=== PATIENT | female | born 1955 | race Caucasian/White ===

== ENCOUNTER 2020-06-05 18:40 | Observation (INO) | payer MEDICARE, MEDICAID ==
[~2020-06-05] VITALS: Ht 157.5 cm; Wt 60.0 kg
[~2020-06-05 18:40] MED LIST: BENA40TA8 PO; CALC-467 PO; CYCL-1 PO; IBUP-1984 PO; LANS15CA10 PO; METO-539 PO; ORPH100T2 PO; TRAZ-251 PO; TRIA1CAP6 PO
[2020-06-05 19:04] LABS: BASOPHILS % (AUTO) 0.4 % (0-1); EOSINOPHILS # (AUTO) 0.1 X10'3 (0-0.9); EOSINOPHILS % (AUTO) 0.9 % (0-6); HEMATOCRIT 41.1 % (35.0-45.0); HEMOGLOBIN 13.8 g/dl (12.0-16.0); LYMPHOCYTES % (AUTO) 27.3 % (21-51); MEAN CORPUSCULAR HEMOGLOBIN 30.7 PG (27.0-31.0); MEAN CORPUSCULAR HGB CONC 33.5 g/dL (33.0-36.5); MEAN CORPUSCULAR VOLUME 91.6 FL (78-98); MEAN PLATELET VOLUME 7.2 FL (7.4-10.4); MONOCYTES # (AUTO) 0.5 X10'3 (0-0.9); MONOCYTES % (AUTO) 6.9 % (2-12); NEUTROPHILS # (AUTO) 4.6 X10'3 (1.8-7.7); NEUTROPHILS % (AUTO) 64.5 % (42-75); PLATELET COUNT 320 X10'3 (140-440); RED BLOOD COUNT 4.48 X10'6 (4.20-5.60); RED CELL DISTRIBUTION WIDTH 13.8 % (11.5-14.5); WHITE BLOOD COUNT 7.2 X10'3 (4.5-11.0)
[2020-06-05 19:20] LABS: ALANINE AMINOTRANSFERASE 26 U/L (12-78); ALBUMIN 4.2 G/DL (3.4-5.0); ALBUMIN/GLOBULIN RATIO 1.2 (1.1-1.5); ALKALINE PHOSPHATASE 56 IU/L (46-116); ANION GAP 5 (8-16); ASPARTATE AMINO TRANSFERASE 17 U/L (10-37); BILIRUBIN,TOTAL 0.5 MG/DL (0.1-1.0); BLOOD UREA NITROGEN 8 MG/DL (7-18); CALCIUM 9.8 MG/DL (8.5-10.1); CHLORIDE 85 MMOL/L (99-107); GLUCOSE 113 MG/DL (70-104); POTASSIUM 4.1 MMOL/L (3.5-5.1); SODIUM 121 MMOL/L (135-145); TOTAL CARBON DIOXIDE 30.9 MMOL/L (24-32); TOTAL PROTEIN 7.6 G/DL (6.4-8.2); eGFR 72 ML/MIN
--- NOTE | 2020-06-05 20:09 | NUR ---
Patient resting comfortably
[2020-06-05] MEDS ORDERED: hyDRALAzine 10mg tablet PO STA (20:14)
[2020-06-05 20:59] LABS: CLARITY,URINE CLEAR (Clear); COLOR,URINE YELLOW (Yellow); GLUCOSE, URINE NEGATIVE (Neg); KETONES,URINE TRACE mg/dl (Neg); LEUKOCYTE ESTERASE ,URINE NEGATIVE (Neg); NITRITES, URINE NEGATIVE (Neg); OCCULT BLOOD,URINE NEGATIVE (Neg); PROTEIN,URINE NEGATIVE (Neg); UROBILINOGEN,URINE 0.2 E.U/dL (0.2-1.0)
[2020-06-05] MEDS ORDERED: temazepam 15mg capsule PO PRN (21:00)
[2020-06-05 21:04] LABS: UA COLLECTION TYPE CLN CATCH MIDSTREAM
[2020-06-05] MEDS ORDERED: magnesium Cl slow-release 64mg tablet PO PRN (21:10)
[2020-06-05] MEDS ORDERED: potassium CL 10mEq/100ml bag 100 ML IV PRN ×2 (21:10)
[2020-06-05] MEDS ORDERED: HYDROcodone/acetaminophen 5mg/325mg tablet PO PRN (21:10)
[2020-06-05] MEDS ORDERED: magnesium 2GM in 50ml NS 50 ML IV PRN (21:10)
[2020-06-05] MEDS ORDERED: metoclopramide 5 mg/ml inj IV PRN (21:10)
[2020-06-05] MEDS ORDERED: magnesium 4gm in 100ml NS 100 ML IV PRN (21:10)
[2020-06-05] MEDS ORDERED: ondansetron/PF 4mg/2ml inj IV PRN (21:10)
[2020-06-05] MEDS ORDERED: magnesium hydroxide 30ml (MOM) UD suspension PO PRN (21:10)
[2020-06-05] MEDS ORDERED: HYDROcodone/acetaminophen 10/325mg tab PO PRN (21:10)
[2020-06-05] MEDS ORDERED: hydrALAZINE 20mg/ml inj. IV PRN (21:10)
[2020-06-05] MEDS ORDERED: acetaminophen 325mg tablet PO PRN ×2 (21:10)
[2020-06-05] MEDS ORDERED: mag hydrox/Alum hydrox/simeth 30ml oral suspension PO PRN (21:10)
[2020-06-05] MEDS ORDERED: potassium Cl 20 mEq SR tablet PO PRN ×2 (21:10)
[2020-06-05] MEDS ORDERED: MORP-92 PO (21:11)
[2020-06-05] MEDS ORDERED: METO-384 PO (21:11)
[2020-06-05] MEDS ORDERED: BACL-11 PO (21:11)
[2020-06-05] MEDS ORDERED: TRAZ-251 PO (21:11)
[2020-06-05] MEDS ORDERED: GABA600T13 PO (21:11)
[2020-06-05] MEDS ORDERED: OMEP-50 PO (21:11)
[2020-06-05] MEDS ORDERED: OXYC1TAB17 PO (21:11)
[2020-06-05] MEDS: normal saline 1000ml 1,000 ML IV SCH (21:40)
[2020-06-05] MEDS ORDERED: morphine ER 15mg tablet PO PRN (22:25)
[2020-06-05 22:53] VITALS: BP 178/78
[2020-06-06] MEDS ORDERED: gabapentin 300mg capsule PO SCH
[2020-06-06] MEDS ORDERED: morphine ER 15mg tablet PO SCH
[2020-06-06] MEDS: morphine ER 15mg tablet PO SCH ×2 (00:04→09:16)
[2020-06-06] MEDS: baclofen 10mg tablet PO SCH ×2 (00:05→09:16)
[2020-06-06 01:00] VITALS: BP 163/64
[2020-06-06] MEDS ORDERED: gabapentin 300mg capsule PO ONE (01:10)
--- NOTE | 2020-06-06 02:01 | NUR ---
ID: [phone] MESSAGE: [id number] pt LETTHitesh . Says she takes Metoprolol at bedtime around midnight and 2400 of Gabapentin at bedtime. - [id number] Addendum: 06/06/20 at 0202 by Annette Galvan RN Okay to order 2400 qHS per MD Caputo
[2020-06-06 06:30] VITALS: BP 149/75
[2020-06-06 07:00] LABS: MAGNESIUM 1.6 MG/DL (1.5-2.4)
[2020-06-06] MEDS: normal saline 1000ml 1,000 ML IV SCH (07:10)
[2020-06-06] MEDS ORDERED: pantoprazole 40mg Tablet.DR PO SCH (07:30)
[2020-06-06] MEDS ORDERED: metoprolol tartrate 50mg tablet PO SCH (08:00)
[2020-06-06] MEDS ORDERED: enoxaparin 40mg/0.4ml syringe SUBCUT SCH (08:00)
[2020-06-06] MEDS ORDERED: oxyCODONE/APAP 10/325mg tablet PO SCH (08:00)
[2020-06-06] MEDS ORDERED: lisinopril 20mg tablet PO SCH (08:00)
[2020-06-06] MEDS ORDERED: K and/or MAG REPLACEMENT MC SCH (08:00)
--- NOTE | 2020-06-06 08:41 | NUR ---
PAGER ID: [phone] MESSAGE: [id number] - ADMITTED LAST NIGHT, WOULD LIKE TO BE DISCHARGED BRIGHT TO GET TO AN APPT IN [place]. IF NO DC, WILL LEAVE AMA. THANKS ACCE [id number]
[2020-06-06 08:46] LABS: BASOPHILS # (AUTO) 0.1 X10'3 (0-0.2); BASOPHILS % (AUTO) 1.2 % (0-1); EOSINOPHILS # (AUTO) 0.1 X10'3 (0-0.9); EOSINOPHILS % (AUTO) 1.3 % (0-6); HEMATOCRIT 40.4 % (35.0-45.0); HEMOGLOBIN 13.2 g/dl (12.0-16.0); LYMPHOCYTES # (AUTO) 2.5 X10'3 (1.1-4.8); LYMPHOCYTES % (AUTO) 33.9 % (21-51); MEAN CORPUSCULAR HEMOGLOBIN 30.6 PG (27.0-31.0); MEAN CORPUSCULAR HGB CONC 32.7 g/dL (33.0-36.5); MEAN CORPUSCULAR VOLUME 93.5 FL (78-98); MEAN PLATELET VOLUME 8.4 FL (7.4-10.4); MONOCYTES # (AUTO) 0.6 X10'3 (0-0.9); MONOCYTES % (AUTO) 8.7 % (2-12); NEUTROPHILS % (AUTO) 54.9 % (42-75); PLATELET COUNT 281 X10'3 (140-440); RED BLOOD COUNT 4.32 X10'6 (4.20-5.60); RED CELL DISTRIBUTION WIDTH 13.8 % (11.5-14.5); WHITE BLOOD COUNT 7.2 X10'3 (4.5-11.0)
[2020-06-06 08:51] LABS: ALBUMIN 3.6 G/DL (3.4-5.0); ANION GAP 9 (8-16); BLOOD UREA NITROGEN 7 MG/DL (7-18); BUN/CREATININE RATIO 10.6 (6.6-38.0); CALCIUM 8.9 MG/DL (8.5-10.1); CHLORIDE 89 MMOL/L (99-107); CREATININE 0.66 MG/DL (0.40-0.90); GLUCOSE 96 MG/DL (70-104); POTASSIUM 3.5 MMOL/L (3.5-5.1); SODIUM 128 MMOL/L (135-145); TOTAL CARBON DIOXIDE 30.3 MMOL/L (24-32); eGFR 90 ML/MIN
[2020-06-06 09:20] VITALS: BP_SYST 149
--- NOTE | 2020-06-06 09:50 | NUR ---
PATIENT SIGNED AMA.; NOTIFIED . PATIENT LEFT WITH ALL BELONGINGS.EXPLAINED TO PATIENT RISK DUE TO ELEVATED TROP, AND PRESENTING SYMPTOMS ON ADMIT; HOWEVER, PATIENT DECIDED TO LEAVE AT THIS TIME. Addendum: 06/06/20 at 2017 by Felecia Bedolla RN Amended: Links added.
[2020-06-06] MEDS ORDERED: traZODone 50mg tablet PO SCH (21:00)
[2020-06-06] MEDS ORDERED: gabapentin 400mg capsule PO SCH (21:00)
== END 2020-06-06 09:53 | disposition left against medical advice (07) ==
LOC: ER 18:41 → ED HOLD 21:07 → MED 3N 22:44
PROVIDERS: ADMIT Family Medicine; ATTEND Family Medicine
DX: I16.0 Hypertensive urgency (principal); R42 Dizziness and giddiness; I10 Essential (primary) hypertension; E87.1 Hypo-osmolality and hyponatremia; R11.0 Nausea; G89.29 Other chronic pain; K21.9 Gastro-esophageal reflux disease without esophagitis; Z98.1 Arthrodesis status; Z79.899 Other long term (current) drug therapy; Z88.5 Allergy status to narcotic agent
CPT/HCPCS: 36415; 71045; 80048; 80053; 81003; 83735; 83880; 84484; 85025; 87081; 93005; 96360; 96361; 96372; 99285; G0378; J7030; J1650

== ENCOUNTER 2020-06-07 12:00 | Emergency (ER) | payer MEDICARE, MEDICAID ==
[~2020-06-07] VITALS: Ht 157.5 cm; Wt 53.0 kg
[~2020-06-07 12:00] MED LIST changes: +BACL-11 PO; -CYCL-1 PO; +GABA600T13 PO; -IBUP-1984 PO; -LANS15CA10 PO; +METO-384 PO; -METO-539 PO; +MORP-92 PO; +OMEP-50 PO; -ORPH100T2 PO; +OXYC1TAB17 PO
[2020-06-07] MEDS ORDERED: LORazepam 2 mg/ml vial IV ONE (13:10)
[2020-06-07 13:27] LABS: BASOPHILS % (AUTO) 0.4 % (0-1); EOSINOPHILS % (AUTO) 0.2 % (0-6); HEMATOCRIT 39.1 % (35.0-45.0); LYMPHOCYTES # (AUTO) 1.2 X10'3 (1.1-4.8); LYMPHOCYTES % (AUTO) 14.6 % (21-51); MEAN CORPUSCULAR HEMOGLOBIN 30.9 PG (27.0-31.0); MEAN CORPUSCULAR HGB CONC 33.4 g/dL (33.0-36.5); MEAN CORPUSCULAR VOLUME 92.6 FL (78-98); MEAN PLATELET VOLUME 7.1 FL (7.4-10.4); MONOCYTES # (AUTO) 0.8 X10'3 (0-0.9); MONOCYTES % (AUTO) 9.6 % (2-12); NEUTROPHILS # (AUTO) 5.9 X10'3 (1.8-7.7); NEUTROPHILS % (AUTO) 75.2 % (42-75); PLATELET COUNT 292 X10'3 (140-440); RED BLOOD COUNT 4.22 X10'6 (4.20-5.60); RED CELL DISTRIBUTION WIDTH 13.8 % (11.5-14.5); WHITE BLOOD COUNT 7.9 X10'3 (4.5-11.0)
[2020-06-07 13:43] LABS: ALANINE AMINOTRANSFERASE 38 U/L (12-78); ALBUMIN 4.1 G/DL (3.4-5.0); ALBUMIN/GLOBULIN RATIO 1.3 (1.1-1.5); ALKALINE PHOSPHATASE 54 IU/L (46-116); ANION GAP 6 (8-16); ASPARTATE AMINO TRANSFERASE 61 U/L (10-37); BILIRUBIN,TOTAL 0.4 MG/DL (0.1-1.0); BLOOD UREA NITROGEN 17 MG/DL (7-18); BUN/CREATININE RATIO 10.4 (6.6-38.0); CALCIUM 8.7 MG/DL (8.5-10.1); CHLORIDE 98 MMOL/L (99-107); CREATININE 1.64 MG/DL (0.40-0.90); GLUCOSE 104 MG/DL (70-104); POTASSIUM 4.2 MMOL/L (3.5-5.1); SODIUM 134 MMOL/L (135-145); TOTAL CARBON DIOXIDE 29.9 MMOL/L (24-32); TOTAL PROTEIN 7.3 G/DL (6.4-8.2); eGFR 32 ML/MIN
--- NOTE | 2020-06-07 14:48 | NUR ---
Dr. Ramos notified of the low BP and somnolence of the patient. Instructed to bolus the rest of the IV fluid liter that EMS started pre-hospital.
--- NOTE | 2020-06-07 15:21 | NUR ---
Pt continues to be sleepy, difficult to arouse with painful stimuli. MARGARET Soria at the bedside and assessed the patient.t
[2020-06-07] MEDS ORDERED: naloxone 0.4 mg/ml inj ONE (16:15)
[2020-06-07] MEDS ORDERED: naloxone 2mg/2ml inj IV ONE (16:25)
--- NOTE | 2020-06-07 17:23 | NUR ---
0.2MG NARCAN IV GIVEN ORDERED, PT REMAINS ASLEEP, NO RESPONSE TO STERNAL RUB
[2020-06-07 17:26] LABS: ETHANOL < 0.010 GM/DL (0.0-0.010)
[2020-06-07 17:29] LABS: ACETAMINOPHEN < 2.0 UG/ML (10-30)
--- NOTE | 2020-06-07 19:08 | NUR ---
Straight cath to obtain urine then patient assisted to bedpan to empty bladder, >1000 ml urine output.
[2020-06-07 19:27] LABS: CLARITY,URINE CLEAR (Clear); COLOR,URINE YELLOW (Yellow); GLUCOSE, URINE NEGATIVE (Neg); KETONES,URINE TRACE mg/dl (Neg); LEUKOCYTE ESTERASE ,URINE NEGATIVE (Neg); NITRITES, URINE NEGATIVE (Neg); OCCULT BLOOD,URINE SMALL (Neg); PROTEIN,URINE NEGATIVE (Neg); UROBILINOGEN,URINE 0.2 E.U/dL (0.2-1.0)
[2020-06-07 19:29] LABS: UA COLLECTION TYPE STRAIGHT CATH
[2020-06-07 19:32] LABS: BACTERIA,URINE NONE SEEN /HPF (Neg); RBC,URINE 0-2 /HPF (0-2); SQUAMOUS EPITHELIAL CELL,UR FEW /LPF (FEW); URINE AMPHETAMINE SCREEN NEGATIVE (Neg); URINE BARBITUATE SCREEN NEGATIVE (Neg); URINE BENZODIAZEPINES SCREEN NEGATIVE (Neg); URINE CANNABINOID SCREEN NEGATIVE (Neg); URINE COCAINE SCREEN NEGATIVE (Neg); URINE METHADONE SCREEN NEGATIVE (Neg); URINE OPIATE SCREEN POSITIVE (Neg); URINE PHENCYCLIDINE SCREEN NEGATIVE (Neg); WBC,URINE NONE SEEN /HPF (0-4)
[2020-06-07 20:13] VITALS: BP 154/69
== END 2020-06-07 20:17 | disposition home or self-care (01) ==
LOC: ER 12:01
DX: F41.0 Panic disorder [episodic paroxysmal anxiety] (principal); M62.838 Other muscle spasm; G89.29 Other chronic pain; Z98.890 Other specified postprocedural states; Z79.899 Other long term (current) drug therapy
CPT/HCPCS: 36415; 70450; 71045; 80053; 80305; 80320; 80329; 81001; 82948; 84443; 85025; 93005; 96374; 96375; 96376; 99285; J2060; J2310